=== PATIENT | male | born 1990 | race Hispanic/Latino ===

== ENCOUNTER 2016-11-07 15:43 | Emergency (ER) | payer OTHER ==
[~2016-11-07] VITALS: Ht 180.3 cm; Wt 86.4 kg
[2016-11-07 15:46] VITALS: BP 143/76; PULSE 95; RESP 22; O2SAT 100
--- NOTE | 2016-11-07 15:53 | ED.REPORT ---
HPI-Extremity Problem Upper Date of Service Nov 07, 2016 ED Provider: Castro Ruiz MD A 26 year old male with no pertinent medical history presents to the ED complaining of right shoulder pain. The pt was hit in front of the right shoulder while playing soccer today and subsequently fell on this shoulder, resulting in an audible crack and immediate pain that has not eased since. The pt was able to move his elbow normally following the incident but had significantly limited range of motion of his right shoulder. No other trauma is reported. Nursing Notes Stated Complaint: RIGHT SHOULDER INJURY Chief Complaint: Extremity Trauma Nursing Notes Reviewed: Yes Allergies: Coded Allergies: No Known Allergies (Unverified , 11/07/16) Scheduled PRN Hydrocodone-Acetaminophen 5-325 mg (Hydrocodone-Acetaminophen 5-325 mg) 1 Each Tablet 1 TABLET PO Q4H PRN PRN For Pain General Time Seen by MD: 15:51 Chief Complaint Shoulder injury right Hx Obtained From: Patient Arrived By: Walk-in Onset Occurred: 1 - 4 hours ago Symptom Duration: Since onset Recent Healthcare: No recent doctor visit, No recent hospitalization Similar Sx Previous: No Past Medical History Past Medical History none reported Past Surgical History none reported Smoking History Unknown if Ever Smoker Social History Other Social History: Good social support Ambulatory Status Independent Review of Systems Musculoskeletal: Reports: Extremity pain (right shoulder) Skin: Denies Rash Complete sys rev & neg: except as marked. Respiratory: Denies: Non-productive cough, Shortness of breath Cardiovascular: Denies: Chest pain GI: Denies: Abdominal pain, Diarrhea, Nausea, Vomiting Physical Exam Initial Vital Signs Vital Signs (First) Date Time Temp Pulse Resp B/P Pulse Ox O2 Delivery O2 Flow Rate FiO2 11/07/16 15:46 36.6 95 22 143/76 100 Room Air Initial VS: Reviewed General/Constitutional: Awake, Alert Neck: Atraumatic, Supple, Full range of motion Respiratory / Chest: Atraumatic, Breath sounds NL, Breath sounds = bilat, No respiratory distress Cardiovascular: Heart rate NL, Regular rhythm, Heart sounds NL Upper Extremity / MS: Neurologic intact, Vascular intact holding right arm across abdomen obvious deformity of right shoulder widening of the glenohumeral joint good radial pulses sensation intact in the fingertips and over the deltoid Skin: Atraumatic, Color NL, No rash, Warm, Dry Neurologic: Oriented X3, Speech NL, No motor deficits, No sensory deficits Head / Eyes: Atraumatic, Normocephalic, PERRL, EOMI ENT: Atraumatic, Airway patent, Mucous membranes moist Abdomen: Atraumatic, Soft, Non-tender Back: Atraumatic, Full range of motion Lower Extremity / Pelvis / MS: Atraumatic, Full range of motion Psychiatric: Affect NL, Mood NL Interpretation & Diagnostics X-Ray Interpretation Xray Interpretation: IMPRESSION: 1. No fractures. 2. Apparent posterior subluxation of the humeral head relative to the glenoid may be projectional. Posterior dislocation is rarely seen without severe trauma. 3. The glenohumeral joint itself is wider than typically seen which may represent a joint effusion or less likely hemarthrosis. Dictated by: Benjamin English M.D. on 11/07/2016 at 16:19 Approved by: Benjamin English M.D. on 11/07/2016 at 16:21 X-Ray Ordered: Shoulder right Interpretation / Wet Read by: Interpret - Radiologist Procedures Proced Mod Sedation/Analgesia Time: 17:13 Procedure Performed by: ED physician Sedation Time: 16 - 30 min (15-20) Consent / Setup: Informed consent provided, Consent from patient, Time-out performed, Hand hygiene observed, Stand sterile technique, Position supine Indication: Shoulder reduction Preparation: school social worker applied, Pulse oximeter applied, Constant attendance, Eval last meal time, Supplemental oxygen, Procedure explained, Suction available, End tidal CO2 mon applied VS Prior to Procedure: All vital signs normal, O2 saturation normal, Blood pressure normal, Heart Rate normal, Respiratory rate normal Mallampati: Class & Anatomy: 1 tonsils/uvula/s palate Airway Exam: Normal facial anatomy, Normal neck anatomy, Normal anatomy CVS/Resp Exam: Normal breath sounds, Normal heart sounds Neuro Exam: Alert, No acute distress, Responsive Sedation: Sedation: Propofol ASA Classification: 1 normal healthy patient Response During Procedure: Handled secretions adeq, Maintained airway well, Oxygenation stable, Sedation appropriate, Vital signs stable Complications During/After: None Reversal: None required Mental Status After Procedure: Alert, Oriented X3 Post-Procedure: Alert prior to discharge, Pt rtn pre-proc baseline, Vital signs normal Attestation: I performed procedure, I performed sedation Reduction Dislocated Shoulder Time: 17:13 Procedure Performed by: ED physician Consent / Setup: Informed consent provided, Consent from patient, Time-out performed, Oxygen administered, Pulse oximeter applied, school social worker applied , Hand hygiene observed, Stand sterile technique Procedural Sedation/Analgesia: Sedation: Propofol Which Shoulder and Technique: Right shoulder, External rotation, Traction- counter-traction Neurovascular: Intact pre-procedure, Intact post-procedure Post-Procedure / Complications: Reduced per examination, Procedure successful, Condition improved, Tolerated procedure well, Patient stable Re-Eval/Medical Decision Med Decision/Clinical Course Patient is a generally healthy 26-year-old male who presents with severe right shoulder pain after eating involved in a sports injury. Gross examination of his shoulder is consistent with dislocation. He has neurovascularly intact with good radial pulses, good cap refill and sensation to the fingertips and good sensation over the deltoid region. There are no other associated injuries on full head to toe examination. Here in the emergency department the patient was afebrile with stable vital signs. His pain was treated with IV hydromorphone. Left shoulder x-ray: 1. No fractures. 2. Apparent posterior subluxation of the humeral head relative to the glenoid may be projectional. Posterior dislocation is rarely seen without severe trauma. 3. The glenohumeral joint itself is wider than typically seen which may represent a joint effusion or less likely hemarthrosis. Patient was discussed with orthopedic surgery Dr. Scruggs who reviewed the x- rays and agreed with plan for sedation and reduction at the bedside. Dr. Scruggs is present at the bedside and assisted with the procedure. Conscious sedation with Propofol and reduction of posterior dislocation were performed as documented above. No complications. Patient remained neurovascularly intact after the procedure and recovered well from sedation. Postreduction films demonstrated good alignment of the shoulder. Patient was placed in a sling with abduction pillow and advised to follow up with orthopedic surgery first thing on Tuesday. He was provided with a prescription for pain medication.Prior to discharge follow-up and return precautions were reviewed in detail with the patient who verbalized understanding and agreement with the plan. The patient was discharged in stable condition. Source of Hx: Old records Re-Evaluation/Progress #1: Time of Eval: 17:05 Patient Status: Condition improved Re-Evaluation/Progress Note: Pt rechecked and consent for conscious sedation/shoulder reduction is obtained. Re-Evaluation/Progress #2: Time of Eval: 17:13 Patient Status: Condition improved Re-Evaluation/Progress Note: Pt rechecked, who is stable. Sedation and shoulder reduction are performed without complication. Dr. Scruggs, orthopedic surgeon, is present during the procedure. Re-Evaluation/Progress #3: Time of Eval: 17:55 Patient Status: Condition improved Re-Evaluation/Progress Note: Pt rechecked, who is awake and well. The diagnosis and plan for discharge are discussed. The pt understands and agrees with the plan. All questions are addressed at this time. Consultation #1: Referral / Consult Name: Jb Scruggs MD Consulted With: Orthopedic Call Returned at: 16:36 Tamper Operator: Agrees with eval, Agrees with plan Note: Spoke with Dr. Scruggs, orthopedic surgeon, regarding pt's case. Dr. Scruggs agrees that the pt has a posterior dislocation and recommends reduction. Consultation #2: Referral / Consult Name: Jb Scruggs MD Consulted With: Orthopedic Call Returned at: 16:42 Note: Spoke with Dr. Scruggs regarding further recommendations. Dr. Scruggs recommends an abduction pillow sling. Counseled Regarding: Diagnosis, Lab results, Need for follow-up, When/why to return to ED Discharge & Departure Impression: Primary Impression: Posterior dislocation of right shoulder joint Encounter type: initial encounter Qualified Code: S43.021A - Posterior subluxation of right humerus, initial encounter Additional Impression: Posttraumatic pain Disposition: Home Discharge Condition All VS Reviewed: Yes Condition: Stable Patient Instructions: How to Use a Sling (GEN), Shoulder Dislocation (ED) Additional Instructions: Thank you for seeking care at the emergency room. You had a posterior dislocation of your right shoulder, which was reduced. Call orthopedics (Dr. Scruggs) Tuesday to arrange a follow up appointment. Wear the sling at all times. Our primary goal today in the Emergency Department was to evaluate you for any life-threatening conditions. Your evaluation was reassuring. You will be discharged with a prescription for [place]. You should return to the Emergency Department immediately if you develop worsening pain, numbness, tingling, weakness, fevers, shortness of breath, lightheadedness or any other concerning signs or symptoms. Thank you for letting us partake in your care today. You have been prescribed a narcotic for pain relief. These drugs are usually combined with acetaminophen (Tylenol#3, Percocet, Darvocet, Anexsia, Vicodin) or aspirin (Empirin#3, Percodan, Synalogs-DC) for increased effect. Narcotics act on the central nervous system to reduce pain; they also impair mental alertness and physical abilities. We advise you not to drink alcohol, drive a car, or operate dangerous equipment when you are taking these drugs. You can lessen stomach irritation from your medicine by taking it with meals or a full glass of water. Common side effects of narcotics are: Nausea and vomiting , heartburn, constipation, dizziness, sleepiness, and mood changes. If you have bothersome side effects or symptoms of an allergic reaction (itching, hives, rash), stop taking your medicine and call your doctor or the emergency room right away. Please keep your narcotic medicine well out of the reach of children. Referrals: Frida Puri MD (Family) Jb Scruggs MD Scribe Attestation Portions of this note were transcribed by Carley Lopez. I, Dr. Ruiz personally performed the history, physical exam and medical decision-making; I reviewed and confirmed the accuracy of the information in the transcribed note. copies to: Frida Puri MD; Jb Scruggs MD, Beck O MD Nov 07, 2016 15:53 CARLEY LOPEZ Nov 07, 2016 16:02
--- NOTE | 2016-11-07 16:23 | DRSVH ---
PROCEDURE: X-RAY RIGHT SHOULDER, MINIMUM TWO VIEWS ([id number]) INDICATIONS: injury, pain TECHNIQUE: 2 views of the shoulder were acquired. COMPARISON: None. FINDINGS: Bones: No fractures. Apparent posterior subluxation of the humeral head relative to the glenoid may b e projectional. The glenohumeral joint itself is widened typically seen which may represent a joint e ffusion. Soft tissues: No suspicious soft tissue calcifications. IMPRESSION: 1. No fractures. 2. Apparent posterior subluxation of the humeral head relative to the glenoid may be projectional. Po sterior dislocation is rarely seen without severe trauma. 3. The glenohumeral joint itself is wider than typically seen which may represent a joint effusion or less likely hemarthrosis. Dictated by: Benjamin English M.D. on 11/07/2016 at 16:19 Approved by: Benjamin English M.D. on 11/07/2016 at 16:21
[2016-11-07] MEDS ORDERED: HYDROmorphone 1 mg/mL Inj IVPUSH ONE (16:25)
[2016-11-07] MEDS ORDERED: Propofol 10 mg/mL 20 mL Inj IVPUSH ONE (16:50)
[2016-11-07] MEDS ORDERED: Ketamine 10 mg/mL 20 mL Inj ONE (17:21)
[2016-11-07] MEDS ORDERED: HYDR-4003 PO (17:53)
--- NOTE | 2016-11-07 18:09 | DRSVH ---
PROCEDURE: X-RAY RIGHT SHOULDER, MINIMUM TWO VIEWS ([id number]) INDICATIONS: post reduction TECHNIQUE: 3 views of the shoulder were acquired. COMPARISON: None. FINDINGS: Bones: No fractures or dislocations. No suspicious bony lesions. Visualized ribs appear intact. Soft tissues: No suspicious soft tissue calcifications. IMPRESSION: Interval relocation of the right shoulder. No acute fractures or dislocations. Dictated by: Benjamin English M.D. on 11/07/2016 at 18:07 Approved by: Benjamin English M.D. on 11/07/2016 at 18:08
[2016-11-07 18:32] VITALS: BP 142/74; PULSE 102; RESP 16; O2SAT 98
--- NOTE | 2016-11-07 18:44 | OP ---
[address] [address] OPERATIVE REPORT PATIENT: LIAM MYLES : 1990 MR#: [id number] ADMIT: 11/07/2016 JOB ID: [id number] DATE OF SURGERY: 11/07/2016 SURGEON: Jb Scruggs MD PREOPERATIVE DIAGNOSIS(ES): Right shoulder posterior dislocation, traumatic. POSTOPERATIVE DIAGNOSIS(ES): Right shoulder posterior dislocation, traumatic. PROCEDURE: Closed reduction, right posterior shoulder dislocation. ANESTHESIA: IV conscious sedation with ER staff physician. COMPLICATIONS: None. INDICATIONS: A 26-year-old male who was playing soccer today, was kicked in the shoulder anteriorly and he sustained a posterior shoulder dislocation. X-rays confirmed that the shoulder was posteriorly dislocated. Under adequate IV sedation, conscious sedation, applied traction to the arm with a small amount of external rotation and pulled from a posterior to anterior direction. The shoulder was subsequently located. The patient had intact neurovascular examination preoperatively as well as postoperatively. He was placed in a pillow abduction splint to avoid extremes of internal rotation and position the arm in a small amount of external rotation. The patient tolerated the procedure well. PLAN: He will follow up in the orthopedic clinic. Will contact him and arrange for an appointment within a week. The patient is going to need an MRI scan of that shoulder to further delineate soft tissue and any bony pathology.
--- NOTE | 2016-11-07 19:20 | ER ---
[address] [address] EMERGENCY DEPARTMENT REPORT PATIENT: LIAM MYLES : 1990 MR#: [id number] ADMIT: 11/07/2016 JOB ID: [id number] DATE: 11/07/2016 ORTHOPEDIC EMERGENCY ROOM CONSULTATION: CHIEF COMPLAINT: This is a 26-year-old, right-hand dominant male whom I was asked to see in orthopedic consultation by Dr. Sara odell in the department for a right shoulder posterior dislocation, CPT code 92720-01. HISTORY: This is a 26-year-old male who was playing soccer and was kicked in the anterior aspect of his right shoulder. He sustained a posterior dislocation. The patient had immediate pain in the shoulder and not able to hardly move the shoulder. The patient denied any numbness or tingling. PAST MEDICAL HISTORY: ALLERGIES: None. No routine medications Prior surgeries: None. SOCIAL HISTORY: The patient has good social support. He was an ambulatory patient. Denies any prior surgeries. REVIEW OF SYSTEMS: HEENT: No blurring of vision. No decreased hearing. Respiratory: No shortness of breath. Cardiovascular: No chest pain. GI: No nausea, vomiting. : No dysuria. Musculoskeletal: Right shoulder pain, obvious deformity. No paresthesias or dysesthesias. Neuro: No lateralizing neurologic findings. Hematologic: No easy bleeding or bruising. Psychiatric: No anxiety or depression. PHYSICAL EXAMINATION: 180 cm, 86 kg male. Temperature 36.6, pulse of 95, respiration 22, blood pressure 143/76, pulse ox of 100. The patient is alert and oriented. The patient does move all four extremities, but he has obvious deformity on the right shoulder with significant decreased motion of any motion of the shoulder. He is able to move the right elbow and right hand and wrist. Radial and ulnar pulses are full. Radial, median and ulnar motor and sensory function intact. X-rays of the right shoulder show positive increased glenohumeral joint gap and positive light bulb sign consistent with posterior shoulder dislocation. Shoulder is located posterior on the Y-view and there is an increased gap on the AP [place] view. PROCEDURE: Under IV conscious sedation, with the help of Dr. Ruiz from the emergency department, I was able to manipulate the shoulder and reduced the shoulder. The patient had intact pulses and intact neurologic condition postoperatively. PLAN: Patient was placed in a shoulder abduction pillow to keep the shoulder from being maximally internally rotated. This allowed it to be in a small amount of abduction and a small amount of external rotation. The patient was given some pain medication. We have taken his information and will contact him for followup in the office within the next 7-10 days. He is to remain in his shoulder abduction pillow. Separate procedure surgical note has been dictated. CC: [facility] Orthopedics
== END 2016-11-07 18:34 | disposition home or self-care (01) ==
LOC: SED 15:43
DX: S43.021A Posterior subluxation of right humerus, initial encounter (principal); M25.511 Pain in right shoulder; W18.00XA Striking against unspecified object with subsequent fall, initial encounter; Y93.66 Activity, soccer; Y92.89 Other specified places as the place of occurrence of the external cause; Y99.8 Other external cause status
CPT/HCPCS: 23650; 73030; 94799; 96374; 99152; 99285; J1170; J2704